=== PATIENT | female | born 1940 | race Caucasian/White ===

== ENCOUNTER 2017-06-30 14:09 | Emergency (ER) | payer MEDICARE, BC ==
[~2017-06-30] VITALS: Ht 172.7 cm; Wt 88.0 kg
--- NOTE | 2017-06-30 14:34 | PD ---
Physical Exam Time Seen by Provider: 14:30 Narrative 77yo F sent from walk in clinic w/ c/o R lower leg swelling x 1 week with worsening after a fall a week ago. Ambulatory in triage. No pain. Takes Coumadin for Afib. Patient seen in triage. VS reviewed. Patient awaiting bed placement. MDM Supervised Visit with REMI: Kisha Sanabria Jun 30, 2017 14:34
--- NOTE | 2017-06-30 16:06 | PD ---
HPI Chief Complaint: Edema Time Seen by Provider: 16:05 Travel History International Travel<30 days: No Contact w/Intl Traveler<30days: No Traveled to known affect area: No History of Present Illness HPI 77 YO F with PMH of --------presents to the ED for evaluation of PFSH Past Medical History Hx Anticoagulant Therapy: Yes (COUMADIN) Cardiovascular Problems: Yes Shae Rios Jun 30, 2017 16:06
--- NOTE | 2017-06-30 16:17 | PD ---
HPI Chief Complaint: Edema Time Seen by Provider: 16:05 Travel History International Travel<30 days: No Contact w/Intl Traveler<30days: No Traveled to known affect area: No History of Present Illness HPI 77 YO F with PMH of Shara key, on Coumadin presents to the ED for evaluation of pain and swelling of the right leg. Onset one week ago after she fell onto the knee while attempting to kill a spider. She has been ambulatory since the accident. She denies any pain in the knee today. She states she sought treatment because her friend, who is a nurse, was concerned about the swelling at the ankle. She denies chest pain, palpitations, shortness of breath. She drove from [place] over the last 2 days. First day 9 hours, second day 4 hours. She endorses compliance with daily Coumadin. She saw her doctor before leaving [place] and had completely normal lab work, including INR, at that time. PFSH Past Medical History Hx Anticoagulant Therapy: Yes (COUMADIN) Cardiovascular Problems: Yes Social History Tobacco Use: No Review of Systems Except as stated in HPI: all other systems reviewed are Neg Physical Exam Narrative GENERAL: Well-nourished, well-developed pleasant white female in no acute distress. SKIN: Focused skin assessment warm/dry. Old ecchymosis at the ankle and the inner thigh of the right leg. HEAD: Normocephalic. EYES: No scleral icterus. No injection or drainage. NECK: Supple, trachea midline. No JVD or lymphadenopathy. CARDIOVASCULAR: Regular rate and rhythm without appreciable murmurs, gallops, or rubs. RESPIRATORY: Breath sounds clear and equal bilaterally. No accessory muscle use. GASTROINTESTINAL: Abdomen soft, non-tender, nondistended. Active bowel sounds. MUSCULOSKELETAL: No cyanosis. FOCUSED RIGHT LOWER EXTREMITY EXAM: 2+ DP pulse. Marked edema in the foot to just below the knee. Homans sign negative. Mild tenderness to palpation of the superior lateral aspect of the patella. Patient retains full, active, painless ROM of the knee. No popliteal tenderness to palpation. Sensation intact to light touch distally. Cap refill less than 2 seconds. BACK: Nontender without obvious deformity. No CVA tenderness. Data Data Last Documented VS Vital Signs Date Time Temp Pulse Resp B/P (MAP) Pulse Ox O2 Delivery O2 Flow Rate FiO2 06/30/17 16:33 97.7 74 16 149/72 (97) 98 Orders Orders Us Leg Venous Doppler (06/30/17 16:30) Knee, Complete (4vws) (06/30/17 16:30) Benjy Bandage (06/30/17 17:34) MDM Medical Decision Making Medical Screen Exam Complete: Yes Emergency Medical Condition: Yes Differential Diagnosis Fracture versus internal derangement versus dependent edema versus DVT versus other Narrative Course 77 YO F with PMH of Shara key, on Coumadin presents to the ED for evaluation of pain and swelling of the right leg. Onset one week ago after she fell onto the knee while attempting to kill a spider. She has been ambulatory since the accident. She denies any pain in the knee today. She states she sought treatment because her friend, who is a nurse, was concerned about the swelling at the ankle. She denies chest pain, palpitations, shortness of breath. She drove from [place] over the last 2 days. She saw her doctor 3 days ago and had completely normal lab work, including INR, at that time. Vitals reviewed. Physical exam reveals a well-appearing, pleasant white female in no acute distress. There is scattered old bruising on the right leg, notably at the ankle and the medial aspect of the thigh. There is also pitting edema to just below the knee. Palpable pulses. Range of motion normal and painless. Neurovascularly intact. X-ray reveals patellar spurring, no acute fracture. Ultrasound negative for DVT. This is posttraumatic ecchymosis and edema of the right lower extremity. There is likely a component of venous insufficiency as well. Benjy wraps were applied for compression. Patient was encouraged to rest, compress, elevate the extremity, return for worsening symptoms, follow up with her primary care upon return home. She indicated understanding of instructions and is agreeable to the care plan. The patient is stable and discharged home. Diagnosis Primary Impression: Edema of right lower extremity Additional Impressions: Fall from standing Qualified Codes: W19.XXXA - Unspecified fall, initial encounter Traumatic ecchymosis of multiple sites of right lower extremity Qualified Codes: S80.11XA - Contusion of right lower leg, initial encounter Referrals: Primary Care Physician Patient Instructions: General Instructions, Leg Edema (ED) Additional Instructions: Rest, hydrate. Compress and elevate the extremity. Resume all at home medications as previously prescribed. Follow-up with the primary care provider. Return to the ED for any urgent or emergent medical condition. Disposition: 01 DISCHARGE HOME Condition: Stable Shae Rios Jun 30, 2017 16:17
[2017-06-30 16:33] VITALS: BP 149/72; PULSE 74; RESP 16; TEMP 97.7; O2SAT 98
--- NOTE | 2017-06-30 17:07 | RADRPT ---
EXAM DATE/TIME: 06/30/2017 16:42 [facility] COMPARISON: No previous studies available for comparison. INDICATIONS : Right leg swelling. MEDICAL HISTORY : Cardiac disorders. Anticoagulant therapy, coumadin. SURGICAL HISTORY : None. ENCOUNTER: Initial ACUITY: 1 week PAIN SCORE: 0/10 LOCATION: Right leg. TECHNIQUE: Venous ultrasound of the leg was performed from the inguinal ligament to the proximal calf. Real-annabelle e, color Doppler and spectral tracing, compression and augmentation techniques were used. FINDINGS: There is normal compressibility of the deep venous system from the inguinal region to the proximal ca lf. No echogenic clot is seen in the lumen of the common femoral, femoral, popliteal, and posterior tibial veins. There is a normal response of the venous system to proximal and distal augmentation an d respiration. Iliac vein is open and patent CONCLUSION: Normal examination. No evidence DVT Fernando Baires MD on June 30, 2017 at 17:05 Board Certified Radiologist. This report was verified electronically.
--- NOTE | 2017-06-30 17:39 | RADRPT ---
EXAM DATE/TIME: 06/30/2017 17:20 [facility] COMPARISON: No previous studies available for comparison. INDICATIONS : Knee pain. MEDICAL HISTORY : None. SURGICAL HISTORY : None. ENCOUNTER: Initial ACUITY: 1 day PAIN SCORE: 0/10 LOCATION: Right knee FINDINGS: Bony structures are intact without evidence of fracture or dislocation. There is small spur forming o ff superior anterior patella with associated soft tissue swelling. There are the medial joint compart ment suggests articular cartilage loss degenerative change. There is a 1 cm amorphous calcification l joy just at the level lateral tibia plateau indeterminate significance. CONCLUSION: Degenerative changes medial joint compartment. Spur off the superior patella with associated soft tissue swe lling. 1 cm amorphous calcification lying just anterior to the later al margin of the lateral tibial plateau of indeterminate etiology and significance Fernando Baires MD on June 30, 2017 at 17:36 Board Certified Radiologist. This report was verified electronically.
== END 2017-06-30 18:00 | disposition home or self-care (01) ==
LOC: NEPC 14:09
DX: S80.11XA Contusion of right lower leg, initial encounter (principal); I48.91 Unspecified atrial fibrillation; Z79.01 Long term (current) use of anticoagulants; W18.30XA Fall on same level, unspecified, initial encounter
CPT/HCPCS: 73564; 93971; 99284